=== PATIENT | male | born 1975 | race African-American/Black ===

== ENCOUNTER 2019-04-05 12:02 | Emergency (ER) | payer SELFPAY ==
[2019-04-05 12:30] VITALS: BP 126/88; PULSE 103; TEMP 98; BMI 29.2
[2019-04-05] MEDS ORDERED: DIPHTH,PERTUSS(ACELL),TET 0.5 ML DISP.SYRIN IM ONE ×2 (12:43→13:10)
[2019-04-05] MEDS ORDERED: ACETAMINOPHEN 500 MG TABLET (FP) PO ONE (12:43)
[2019-04-05] MEDS ORDERED: ACETAMINOPHEN 325 MG TABLET (FP) ONE (13:09)
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
== END 2019-04-05 13:49 | disposition home or self-care (01) ==
LOC: JER 12:02
PROC: 0HQ1XZZ Repair Face Skin, External Approach (ICD-10-PCS; principal; 2019-04-05)
PROC: 3E0234Z Introduction of Serum, Toxoid and Vaccine into Muscle, Percutaneous Approach (ICD-10-PCS; 2019-04-05)
DX: S01.112A Laceration without foreign body of left eyelid and periocular area, initial encounter (principal); X99.8XXA Assault by other sharp object, initial encounter; Y93.89 Activity, other specified; Y92.512 Supermarket, store or market as the place of occurrence of the external cause; Y99.0 Civilian activity done for income or pay
CPT/HCPCS: 90715; 99281-25

== ENCOUNTER 2019-04-11 12:36 | Emergency (ER) | payer OTHER ==
[2019-04-11 12:54] VITALS: BP 111/79; PULSE 86; TEMP 98.5; BMI 29.2
--- NOTE | 2019-04-11 13:06 | PDOC ---
Suture Removal/Wound Check HPI - History of Present Illness Chief Complaint: Suture/Staple Removal(Here) Stated Complaint: SUTURE REMOVAL Time Seen by Provider: 04/11/19 12:55 History Source: Yes: Patient, Old Records Exam Limitations: Yes: No Limitations Treated at: [facility] Date of Last ED visit: 04/05/19 - Previous ED Treatment Type of procedure performed on last visit: Yes: Laceration Repair Antibiotics Prescribed: No Past History - Past Medical History Allergies/Adverse Reactions: Allergies Allergy/AdvReac Type Severity Reaction Status Date / Time No Known Allergies Allergy Verified 04/11/19 12:52 Home Medications: Ambulatory Orders Naproxen [Naprosyn -] 375 mg PO BID #30 tablet 04/22/11 COPD: No - Immunization History Immunization Up to Date: No - Psycho Social/Smoking Cessation Hx Smoking Status: No Smoking History: Never smoked Have you smoked in the past 12 months: No Number of Cigarettes Smoked Daily: 0 Information on smoking cessation initiated: No Hx Alcohol Use: No Drug/Substance Use Hx: No Suture Removal/Wound Check PE - Physical Exam Laceration/Wound Check Symptoms: reports: None Current Severity Level: None Maximum Severity Level: None Pain Localization: None Location of Laceration/Wound: left: Eye (eyebrow) Pain Radiation: None *Review of Systems - Review of Systems Able to Perform ROS?: Yes All Other Systems: Reviewed and Negative *Physical Exam - Vital Signs Last Vital Signs Temp Pulse Resp BP Pulse Ox 98.5 F 86 18 111/79 95 04/11/19 12:53 04/11/19 12:53 04/11/19 12:53 04/11/19 12:53 04/11/19 12:53 - Physical Exam General Appearance: Yes: Appropriately Dressed. No: Apparent Distress Integumentary: positive: Other (Suture line well approximated. No discharge or drainage present. No erythema surrounding suture line.) Medical Decision Making - Medical Decision Making 04/11/19 13:09 A/P: 43-year-old male here for suture removal 8 simple interrupted sutures placed on 04/05/2019 through his left eyebrow. No evidence of infection noted. Suture line well-healed with good approximation. 8 simple interrupted sutures removed without incident. Discharge home Discharge - Discharge Information Problems reviewed: Yes Clinical Impression/Diagnosis: Visit for suture removal Condition: Stable Disposition: HOME - Admission No - Follow up/Referral - Patient Discharge Instructions Additional Instructions: Rest, allow completion of healing May continue using bacitracin ointment until scabs are completely resolved Keep wound covered and out of the sun for at least one year as scar tissue will citrus picker and absorbable more sunlight causing a darker discoloration May use vitamin E, aloe, or other oils recommended for skin and scar healing - Post Discharge Activity
[2019-04-16] MEDS ORDERED: CALCIUM GLUCONATE 10% - 1,000 MG/10 ML VIAL ONE (06:04)
[2019-04-16] MEDS ORDERED: CALCIUM CHLORIDE 1 GM/10 ML *DISP.SYRIN ONE (06:04)
== END 2019-04-11 13:11 | disposition home or self-care (01) ==
LOC: JERFT 12:36
DX: Z48.817 Encounter for surgical aftercare following surgery on the skin and subcutaneous tissue (principal); Z48.02 Encounter for removal of sutures
CPT/HCPCS: 99281-25

== ENCOUNTER 2020-10-19 02:46 | Emergency (ER) | payer OTHER ==
[2020-10-19] MEDS ORDERED: ACETAMINOPHEN 500 MG TABLET (FP) PO ONE (03:08)
[2020-10-19] MEDS ORDERED: SODIUM CHLORIDE 1,000 ML IV STA (03:08)
[2020-10-19 03:18] VITALS: BMI 29.2
[2020-10-19] MEDS ORDERED: morphine SULFATE 4 MG/ML VIAL ONE (03:20)
[2020-10-19] MEDS ORDERED: ONDANSETRON 4 MG/2 ML VIAL ONE (03:21)
[2020-10-19] MEDS ORDERED: morphine CARPU-JECT 2 MG/1 ML DISP.SYRIN IVPUSH ONE (03:29)
[2020-10-19] MEDS ORDERED: ONDANSETRON 4 MG/2 ML VIAL IVPUSH ONE (03:29)
[2020-10-19 03:52] LABS: URINE APPEARANCE CLEAR; URINE BILIRUBIN NEGATIVE (NEGATIVE); URINE COLOR YELLOW; URINE GLUCOSE (UA) NEGATIVE (NEGATIVE); URINE KETONE TRACE (NEGATIVE); URINE LEUK ESTERASE NEGATIVE (NEGATIVE); URINE NITRITE NEGATIVE (NEGATIVE); URINE PROTEIN TRACE (NEGATIVE); URINE UROBILINOGEN 0.2 mg/dL (0.2-1.0)
[2020-10-19 03:53] LABS: BASO % 0.7 % (0-2.0); EOS % 6.7 % (0-4.5); HEMATOCRIT 44.3 % (35.4-49); HEMOGLOBIN 15.1 GM/dL (11.7-16.9); LYMPH % 33.6 % (8-40); MCH 29.1 pg (25.7-33.7); MCHC 34.1 g/dl (32.0-35.9); MEAN CELL VOLUME 85.5 fl (80-96); MONO % 9.7 % (3.8-10.2); NEUT % 49.3 % (42.8-82.8); PLATELET COUNT 267 10^3/uL (134-434); RBC 5.18 M/mm3 (4.00-5.60); RDW 14.4 % (11.9-15.9); WHITE BLOOD COUNT 6.5 K/mm3 (4.0-10.0)
[2020-10-19 04:10] LABS: CHLORIDE 105 mmol/L (98-107); SODIUM 126 mmol/L (136-145)
[2020-10-19 04:12] LABS: ALBUMIN 3.4 g/dl (3.4-5.0); BLOOD UREA NITROGEN 19.6 mg/dL (7-18); CO2 24 mmol/L (21-32); GLUCOSE,RANDOM 129 mg/dL (74-106)
[2020-10-19 04:16] LABS: CREATININE 1.2 mg/dL (0.55-1.3)
[2020-10-19 04:18] LABS: ALK PHOS 47 U/L (45-117)
[2020-10-19 04:19] LABS: TOT PROT 8.6 g/dl (6.4-8.2)
[2020-10-19] MEDS ORDERED: KETOROLAC TROMETHAMINE 30 MG/1 ML VIAL IVPUSH ONE (04:27)
[2020-10-19] MEDS ORDERED: KETOROLAC TROMETHAMINE 15 MG/ML VIAL ONE (04:36)
[2020-10-19 05:24] LABS: ANION GAP -3 MMOL/L (8-16)
[2020-10-19 05:39] LABS: BLOOD UREA NITROGEN 18.2 mg/dL (7-18); CALCIUM 7.9 mg/dL (8.5-10.1)
[2020-10-19 05:43] LABS: CREATININE 1.1 mg/dL (0.55-1.3)
[2020-10-19 05:45] VITALS: BP 132/82; PULSE 85; TEMP 98.3
== END 2020-10-19 05:45 | disposition home or self-care (01) ==
LOC: JER 02:46
PROC: 3E0333Z Introduction of Anti-inflammatory into Peripheral Vein, Percutaneous Approach (ICD-10-PCS; principal; 2020-10-19)
PROC: 3E033NZ Introduction of Analgesics, Hypnotics, Sedatives into Peripheral Vein, Percutaneous Approach (ICD-10-PCS; 2020-10-19)
PROC: 3E033GC Introduction of Other Therapeutic Substance into Peripheral Vein, Percutaneous Approach (ICD-10-PCS; 2020-10-19)
PROC: 3E0337Z Introduction of Electrolytic and Water Balance Substance into Peripheral Vein, Percutaneous Approach (ICD-10-PCS; 2020-10-19)
DX: N20.1 Calculus of ureter (principal)
CPT/HCPCS: 36415; 74176-TC; 80048; 80053; 81003; 85025; 87086; 99284-25

== ENCOUNTER 2023-05-22 07:22 | Emergency (ER) | payer OTHER ==
[2023-05-22] MEDS: SODIUM CHLORIDE 1,000 ML IV STA (07:30)
[2023-05-22] MEDS ORDERED: KETOROLAC TROMETHAMINE 30 MG/1 ML VIAL ONE (07:32)
[2023-05-22] MEDS: KETOROLAC TROMETHAMINE 30 MG/1 ML VIAL IVPUSH ONE (07:40)
[2023-05-22 07:41] VITALS: BP 117/82; PULSE 74; RESP 18; TEMP 97.8; BMI 30.9
[2023-05-22 08:09] LABS: HEMATOCRIT 47.4 % (35.4-49); HEMOGLOBIN 15.7 G/dL (11.7-16.9); MCH 28.6 pg (25.7-33.7); MCHC 33.1 g/dl (32.0-35.9); MEAN CELL VOLUME 86.3 fl (80-96); MEAN PLT VOLUME 8.8 fl (7.5-11.1); RBC 5.49 10^6/uL (4.00-5.60); RDW 15.4 % (11.9-15.9); WHITE BLOOD COUNT 4.7 10^3/uL (4.0-10.8)
[2023-05-22 08:23] LABS: ALBUMIN 4.6 g/dl (3.4-5.0); BILIRUBIN,TOTAL 0.4 mg/dl (0.2-1); CALCIUM 9.6 mg/dl (8.5-10.1); CREATININE 0.9 mg/dl (0.6-1.3); POTASSIUM 4.4 mmol/L (3.5-5.1); TOT PROT 7.2 g/dl (6.4-8.2)
[2023-05-22 08:31] LABS: EPITHELIAL CELLS 0-5 /hpf; URINE SPERM PRESENT
[2023-05-22 08:48] LABS: PLATELET ESTIMATE ADEQUATE
== END 2023-05-22 10:22 | disposition home or self-care (01) ==
LOC: FER 07:22
PROC: 3E0333Z Introduction of Anti-inflammatory into Peripheral Vein, Percutaneous Approach (ICD-10-PCS; principal; 2023-05-22)
PROC: 3E0337Z Introduction of Electrolytic and Water Balance Substance into Peripheral Vein, Percutaneous Approach (ICD-10-PCS; 2023-05-22)
DX: R10.9 Unspecified abdominal pain (principal); N20.0 Calculus of kidney
CPT/HCPCS: 36415; 74176-TC; 80053; 81003; 81015; 85027; 87086; 99284-25

== ENCOUNTER 2023-07-07 12:17 | Emergency (ER) | payer OTHER ==
[2023-07-07 12:24] VITALS: BP 123/85; PULSE 98; RESP 18; TEMP 98.6; BMI 30.9
[2023-07-07] MEDS ORDERED: ACETAMINOPHEN 325 MG TABLET (FP) ONE (13:11)
[2023-07-07] MEDS: ACETAMINOPHEN 325 MG TABLET (FP) PO ONE (13:14)
== END 2023-07-07 14:25 | disposition home or self-care (01) ==
LOC: FER 12:17
DX: M79.651 Pain in right thigh (principal); S70.11XA Contusion of right thigh, initial encounter; L76.34 Postprocedural seroma of skin and subcutaneous tissue following other procedure; X58.XXXA Exposure to other specified factors, initial encounter
CPT/HCPCS: 93971-TC; 99284-25